=== PATIENT | male | born 1970 | race Caucasian/White ===

== ENCOUNTER → 2023-12-03 | Outpatient (CLI) | payer OTHER, SELFPAY ==
--- NOTE | 2023-12-03 07:17 | MRI_ITS ---
STUDY: MRI LUMBAR SPINE WITHOUT CONTRAST REASON FOR EXAM: Male, 53 years old. pain TECHNIQUE: Standardized fat and water weighted pulse sequences were obtained in the sagittal and axial planes. COMPARISON: Lumbar spine radiographic study November 19, 2023 FINDINGS: T12-L1: Normal endplates. Normal disc height, hydration and morphology. Normal bilateral facet joints. Normal central canal and bilateral lateral recesses. Normal bilateral intervertebral neural foramina. Normal lumbar lordosis. There is no substantial scoliosis. Normal conus medullaris that terminates at the L1-2: Normal endplates. Normal disc height, hydration and morphology. Normal bilateral facet joints. Normal central canal and bilateral lateral recesses. Normal bilateral intervertebral neural foramina. L2-3: Normal endplates. Normal disc height, disc desiccation and mild annular bulge.. Mild facet arthropathy slightly more pronounced on the left. Mild narrowing of the central canal. Normal bilateral lateral recesses. Mild right neural foraminal stenosis and moderate left neural foraminal encroachment L3-4: Narrowed disc space with desiccation of disc and mild annular bulge with small central disc protrusion.. Facet arthropathy and thickening of ligamenta flava.. Moderate central canal stenosis exaggerated by posterior epidural fat pad. Mild bilateral lateral recess stenosis and moderate to severe bilateral neural foraminal stenosis L4-5: Normal endplates. Normal disc height, desiccation and minor annular bulge.. Mild facet arthropathy.. Normal central canal and bilateral lateral recesses. Mild to moderate bilateral neural foraminal encroachment L5-S1: Normal endplates. Normal disc height, desiccation and tiny central disc protrusion.. Normal bilateral facet joints. Normal central canal and bilateral lateral recesses. Normal bilateral intervertebral neural foramina. Normal visualized sacral ala. Normal visualized paraspinous soft tissue structures. No significant change when compared with previous study given inherent differences of the imaging modalities MRI/Spine Lumbar (Routine) IMPRESSION: No evidence for acute fracture or other significant bony pathology.. Multilevel spinal stenosis secondary to disc disease and bony hypertrophy most severe at L2-3 and L3-4. Findings as above Electronically Signed: Harley Riley MD at 16:26 EDT Reading Location ID and State: [address] [place] [address] Tel , Service support ,
== END | disposition home or self-care (01) ==
LOC: MRI 07:10
PROVIDERS: PCP Family Medicine Geriatric Medicine; Referring Provider Orthopaedic Surgery Orthopaedic Surgery of the Spine; Visit Provider Orthopaedic Surgery Orthopaedic Surgery of the Spine
DX: M54.16 Radiculopathy, lumbar region (principal)
CPT/HCPCS: 72148